=== PATIENT | male | born 1985 | race Caucasian/White ===

== ENCOUNTER → 2017-07-28 | Outpatient (CLI) | payer OTHER ==
--- NOTE | 2017-07-28 14:43 | RADIOLOGY IMAGING REPORT ---
FACILITY: [facility] [place] PATIENT NAME: James Andrea : 1985 MR: [id number] V: [id number] EXAM DATE: ORDERING PHYSICIAN: TILA ARAUJO TECHNOLOGIST: Location: [facility] [place] Patient: James Andrea : 1985 Visit/Account:[id number] Date of Sevice: 07/28/2017 TESTICULAR HISTORY: Mass in right scrotum COMPARISON: None. FINDINGS: Testes: Right testicle measures 4.8 x 2.6 x 3.5 cm the left testicle measures 4.7 x 2.6 x 3.1 cm Sym metric and unremarkable blood flow documented by color and Duplex Doppler ultrasound. Epididymides: The head epididymis on the right measures 1.1 x 2.1 x 1.4 cm and contains a cyst measur ing 1.1 cm in diameter . The head epididymis on the left measures 1 x 1 x 0.9 cm Blood flow is unre markable in each epididymis by color Doppler ultrasound. Hydrocele: Small bilateral hydroceles Varicocele: None. IMPRESSION: There are small bilateral hydroceles Cyst in the head epididymis on the right measures 1.1 cm in diameter No demonstration of intratesticular masses Report Dictated By: Anita Seth MD at 07/28/2017 2:31 PM Report E-Signed By: Anita Seth MD at 07/28/2017 2:38 PM WSN:[id number]
== END ==
LOC: US 01:15
PROVIDERS: ATTEND Urology
DX: N43.2 Other hydrocele (principal); N50.3 Cyst of epididymis
CPT/HCPCS: 76870